=== PATIENT | male | born 1955 | race Caucasian/White ===

== ENCOUNTER 2021-10-14 08:10 | Inpatient (IN) | payer OTHER ==
[2021-10-14 09:31] VITALS: BMI 25.4
[2021-10-14] MEDS ORDERED: SODIUM CHLORIDE 0.9% 500 ML INFUS.BAG IV ONE (10:05)
[2021-10-14] MEDS ORDERED: ACETAMINOPHEN 1000 MG/100 ML BAG IVPB ONE (10:05)
[2021-10-14] MEDS ORDERED: ACETAMINOPHEN INJECTION 100 ML IVPB ONE (10:33)
[2021-10-14] MEDS ORDERED: FAMOTIDINE 20 MG/50 ML IVPB 20 MG/50 ML MG IVPB ONE ×2 (10:43→11:22)
[2021-10-14] MEDS ORDERED: MAG HYDROX/AL HYDROX/SIMETH 30 ML UNIT-DOSE CUP PO ONE (10:43)
[2021-10-14 10:55] LABS: HEMATOCRIT 33.8 % (35.4-49); HEMOGLOBIN 11.4 GM/dL (11.7-16.9); MCH 29.3 pg (25.7-33.7); MCHC 33.6 g/dl (32.0-35.9); MEAN CELL VOLUME 87.2 fl (80-96); PLATELET COUNT 146 10^3/uL (134-434); RBC 3.88 M/mm3 (4.00-5.60); WHITE BLOOD COUNT 14.6 K/mm3 (4.0-10.0)
[2021-10-14 11:02] LABS: EPI CELLS 9 /uL (0-25.1); HYALINE CASTS 12 /uL (0-3.1); URINE APPEARANCE CLOUDY; URINE BACTERIA 2 /uL (0-1359); URINE BILIRUBIN 1+ (NEGATIVE); URINE COLOR DK YELLOW; URINE GLUCOSE (UA) NEGATIVE (NEGATIVE); URINE KETONE TRACE (NEGATIVE); URINE LEUK ESTERASE TRACE (NEGATIVE); URINE NITRITE NEGATIVE (NEGATIVE); URINE PROTEIN 1+ (NEGATIVE); URINE RBC 12 /uL (0-23.9); URINE WBC 6 /uL (0-25.8)
[2021-10-14 11:03] LABS: INR 1.43 (0.83-1.09); PROTHROMBIN TIME (PATIENT) 16.8 SEC (9.7-13.0)
[2021-10-14 11:06] LABS: ACTIVATED PTT 41.5 SECONDS (25.2-36.5)
[2021-10-14 11:16] LABS: CHLORIDE 103 mmol/L (98-107); SODIUM 136 mmol/L (136-145)
[2021-10-14 11:18] LABS: CALCIUM 9.3 mg/dL (8.5-10.1)
[2021-10-14 11:19] LABS: ALBUMIN 3.7 g/dl (3.4-5.0); ANION GAP 7 MMOL/L (8-16); BLOOD UREA NITROGEN 50.3 mg/dL (7-18); CO2 27 mmol/L (21-32); GLUCOSE,RANDOM 86 mg/dL (74-106); LIPASE 433 U/L (73-393); MAGNESIUM 2.7 mg/dL (1.8-2.4)
[2021-10-14 11:22] LABS: SGOT/AST 31 U/L (15-37); SGPT/ALT 27 U/L (13-61)
[2021-10-14] MEDS ORDERED: MAG HYDROX/AL HYDROX/SIMETH 30 ML UNIT-DOSE CUP ONE (11:22)
[2021-10-14 11:23] LABS: CREATININE 1.9 mg/dL (0.55-1.3); TOT PROT 7.9 g/dl (6.4-8.2)
[2021-10-14 11:24] LABS: BILIRUBIN,TOTAL 1.4 mg/dL (0.2-1)
[2021-10-14 11:26] LABS: ALK PHOS 52 U/L (45-117)
[2021-10-14 11:27] LABS: ANISOCYTOSIS 1+; MACROCYTOSIS 0; PLATELET ESTIMATE DECREASED
[2021-10-14 11:55] LABS: URINE CRYSTALS NONE SEEN /hpf
[2021-10-14] MEDS ORDERED: DEXTROSE 5%-0.45% SALINE 1,000 ML IV SCH (16:15)
[2021-10-14] MEDS ORDERED: PHYTONADIONE 10 MG/1 ML AMP IVPB ONE (16:47)
[2021-10-14] MEDS ORDERED: PHYTONADIONE 10 MG/1 ML AMP ONE (17:44)
[2021-10-14] MEDS ORDERED: PIPERACILLIN/TAZOB 3.375 GM 3.375 GM/50 ML BAG IVPB ONE (17:45)
[2021-10-14] MEDS ORDERED: PIPERACILLIN/TAZOB 3.375 GM 3.375 GM in DEXTROSE 5%-WATER - 50 ML IVPB SCH (18:00)
[2021-10-14] MEDS: DEXTROSE 5%-0.45% SALINE 1,000 ML IV SCH (18:05)
[2021-10-14] MEDS: PIPERACILLIN/TAZOB 3.375 GM 3.375 GM in DEXTROSE 5%-WATER - 50 ML IVPB SCH (18:05)
[2021-10-15] MEDS ORDERED: DEXTROSE 5%-WATER - 50 ML IVPB ONE ×3 (02:20→17:26)
[2021-10-15] MEDS ORDERED: PIPERACILLIN/TAZOBACTAM 3.375 GM VIAL IVPB ONE ×2 (02:20→09:19)
[2021-10-15] MEDS: DEXTROSE 5%-0.45% SALINE 1,000 ML IV SCH ×2 (02:23→18:11)
[2021-10-15] MEDS: PIPERACILLIN/TAZOB 3.375 GM 3.375 GM in DEXTROSE 5%-WATER - 50 ML IVPB SCH ×2 (02:25→09:26)
[2021-10-15] MEDS ORDERED: PT OWN MED DRAWER 7, Y5N ONE ×2 (06:50→09:19)
[2021-10-15 08:55] LABS: INR 1.47 (0.83-1.09); PROTHROMBIN TIME (PATIENT) 16.5 SEC (9.7-13.0)
[2021-10-15 08:56] LABS: BASO % 0.2 % (0-2.0); EOS % 0.6 % (0-4.5); HEMATOCRIT 28.9 % (35.4-49); HEMOGLOBIN 9.8 GM/dL (11.7-16.9); LYMPH % 8.3 % (8-40); MCH 29.5 pg (25.7-33.7); MCHC 33.7 g/dl (32.0-35.9); MEAN CELL VOLUME 87.4 fl (80-96); MEAN PLT VOLUME 8.6 fl (7.5-11.1); MONO % 22.7 % (3.8-10.2); NEUT % 68.2 % (42.8-82.8); PLATELET COUNT 116 10^3/uL (134-434); RBC 3.31 M/mm3 (4.00-5.60); RDW 18.6 % (11.9-15.9); WHITE BLOOD COUNT 6.3 K/mm3 (4.0-10.0)
[2021-10-15 09:15] LABS: BLOOD UREA NITROGEN 30.8 mg/dL (7-18); CALCIUM 8.4 mg/dL (8.5-10.1)
[2021-10-15 09:18] LABS: BILIRUBIN,DIRECT 0.3 mg/dL (0.0-0.2); CREATININE 1.5 mg/dL (0.55-1.3)
[2021-10-15 09:20] LABS: BILIRUBIN,TOTAL 0.9 mg/dL (0.2-1); TOT PROT 6.5 g/dl (6.4-8.2)
[2021-10-15 09:22] LABS: ALBUMIN 2.9 g/dl (3.4-5.0)
[2021-10-15 10:04] LABS: ANISOCYTOSIS 2+; MACROCYTOSIS 0; OVALOCYTE 1+; PLATELET ESTIMATE DECREASED; TEAR DROP CELLS 1+
[2021-10-15] MEDS ORDERED: PIPERACILLIN/TAZOB 2.25 GM 2.25 GM in DEXTROSE 5%-WATER - 50 ML IVPB SCH ×2 (10:45→18:00)
[2021-10-15] MEDS ORDERED: MIDAZOLAM HCL 2 MG/2 ML SINGLE DOSE VIAL ONE (11:43)
[2021-10-15] MEDS ORDERED: fentaNYL CITRATE 250 MCG/5 ML VIAL ONE (11:43)
[2021-10-15] MEDS ORDERED: ROCURONIUM BROMIDE 50 MG/5 ML SYRINGE ONE ×3 (11:43→15:02)
[2021-10-15] MEDS ORDERED: PROMETHAZINE HCL 25 MG/1 ML VIAL IVPUSH PRN ×3 (12:40→16:04)
[2021-10-15] MEDS ORDERED: oxyCODONE HCL 5 MG TABLET PO PRN ×3 (12:40→16:04)
[2021-10-15] MEDS ORDERED: ONDANSETRON 4 MG/2 ML VIAL IVPUSH PRN ×3 (12:40→16:04)
[2021-10-15] MEDS ORDERED: BUPIVACAINE HCL/PF 0.5% (5MG/ML) 10 ML VIAL IJ ONE ×4 (12:47→14:35)
[2021-10-15] MEDS ORDERED: ACETAMINOPHEN INJECTION 100 ML IVPB ONE (13:14)
[2021-10-15] MEDS ORDERED: PIPERACILLIN/TAZOBACTAM 2.25 GM VIAL IVPB ONE (17:26)
[2021-10-15] MEDS: PIPERACILLIN/TAZOB 2.25 GM 2.25 GM in DEXTROSE 5%-WATER - 50 ML IVPB SCH (18:12)
[2021-10-15] MEDS: oxyCODONE HCL 5 MG TABLET PO PRN (19:00)
[2021-10-15] MEDS: ACETAMINOPHEN 1000 MG/100 ML BAG IVPB SCH (20:55)
[2021-10-16] MEDS ORDERED: DEXTROSE 5%-WATER - 50 ML IVPB ONE ×3 (01:37→17:17)
[2021-10-16] MEDS ORDERED: PIPERACILLIN/TAZOBACTAM 2.25 GM VIAL IVPB ONE ×3 (01:37→17:16)
[2021-10-16] MEDS: ACETAMINOPHEN 1000 MG/100 ML BAG IVPB SCH ×2 (01:41→08:14)
[2021-10-16] MEDS: PIPERACILLIN/TAZOB 2.25 GM 2.25 GM in DEXTROSE 5%-WATER - 50 ML IVPB SCH ×3 (02:01→17:23)
[2021-10-16 13:30] LABS: HEMATOCRIT 26.5 % (35.4-49); HEMOGLOBIN 8.8 GM/dL (11.7-16.9); MCH 28.8 pg (25.7-33.7); MCHC 33.2 g/dl (32.0-35.9); MEAN CELL VOLUME 86.8 fl (80-96); MEAN PLT VOLUME 8.6 fl (7.5-11.1); PLATELET COUNT 170 10^3/uL (134-434); RBC 3.05 M/mm3 (4.00-5.60); RDW 18.8 % (11.9-15.9); WHITE BLOOD COUNT 13.1 K/mm3 (4.0-10.0)
[2021-10-16 13:45] LABS: CALCIUM 7.7 mg/dL (8.5-10.1)
[2021-10-16 13:46] LABS: ALBUMIN 2.4 g/dl (3.4-5.0); BLOOD UREA NITROGEN 15.6 mg/dL (7-18)
[2021-10-16 13:49] LABS: CREATININE 1.4 mg/dL (0.55-1.3)
[2021-10-16 13:51] LABS: TOT PROT 5.6 g/dl (6.4-8.2)
[2021-10-16] MEDS: oxyCODONE HCL 5 MG TABLET PO PRN ×2 (14:24→20:57)
[2021-10-16 15:44] LABS: ANISOCYTOSIS 0; MACROCYTOSIS 0; PLATELET ESTIMATE NORMAL
[2021-10-16] MEDS: DEXTROSE 5%-0.45% SALINE 1,000 ML IV SCH ×2 (15:49→21:00)
[2021-10-17] MEDS ORDERED: PIPERACILLIN/TAZOBACTAM 2.25 GM VIAL IVPB ONE ×3 (01:44→17:46)
[2021-10-17] MEDS ORDERED: DEXTROSE 5%-WATER - 50 ML IVPB ONE ×3 (01:45→17:46)
[2021-10-17] MEDS: PIPERACILLIN/TAZOB 2.25 GM 2.25 GM in DEXTROSE 5%-WATER - 50 ML IVPB SCH ×3 (01:48→17:55)
[2021-10-17] MEDS: oxyCODONE HCL 5 MG TABLET PO PRN ×2 (08:14→15:14)
[2021-10-17 12:52] LABS: HEMATOCRIT 29.1 % (35.4-49); HEMOGLOBIN 9.6 GM/dL (11.7-16.9); MCH 28.9 pg (25.7-33.7); MCHC 32.9 g/dl (32.0-35.9); MEAN CELL VOLUME 87.9 fl (80-96); PLATELET COUNT 216 10^3/uL (134-434); RBC 3.31 M/mm3 (4.00-5.60); RDW 18.8 % (11.9-15.9)
[2021-10-17 13:32] LABS: ANISOCYTOSIS 1+; MACROCYTOSIS 0; PLATELET ESTIMATE NORMAL
[2021-10-17 13:40] LABS: BLOOD UREA NITROGEN 8.6 mg/dL (7-18)
[2021-10-17 13:44] LABS: CREATININE 1.2 mg/dL (0.55-1.3)
[2021-10-17] MEDS: DEXTROSE 5%-0.45% SALINE 1,000 ML IV SCH (15:02)
[2021-10-18] MEDS ORDERED: PIPERACILLIN/TAZOBACTAM 2.25 GM VIAL IVPB ONE ×3 (00:32→16:43)
[2021-10-18] MEDS ORDERED: DEXTROSE 5%-WATER - 50 ML IVPB ONE ×3 (00:33→16:43)
[2021-10-18] MEDS: PIPERACILLIN/TAZOB 2.25 GM 2.25 GM in DEXTROSE 5%-WATER - 50 ML IVPB SCH ×3 (01:03→17:17)
[2021-10-18] MEDS: DEXTROSE 5%-0.45% SALINE 1,000 ML IV SCH ×2 (01:03→17:16)
[2021-10-18] MEDS: oxyCODONE HCL 5 MG TABLET PO PRN ×2 (05:50→13:29)
[2021-10-18 09:21] LABS: HEMATOCRIT 29.5 % (35.4-49); HEMOGLOBIN 9.6 GM/dL (11.7-16.9); MCH 28.8 pg (25.7-33.7); MCHC 32.7 g/dl (32.0-35.9); MEAN CELL VOLUME 88.2 fl (80-96); MEAN PLT VOLUME 8.7 fl (7.5-11.1); PLATELET COUNT 235 10^3/uL (134-434); RBC 3.34 M/mm3 (4.00-5.60); RDW 18.5 % (11.9-15.9); WHITE BLOOD COUNT 11.4 K/mm3 (4.0-10.0)
[2021-10-18 09:54] LABS: CREATININE 1.1 mg/dL (0.55-1.3)
[2021-10-18 11:50] LABS: ANISOCYTOSIS 2+; MACROCYTOSIS 0; OVALOCYTE 1+; PLATELET ESTIMATE NORMAL
[2021-10-19] MEDS ORDERED: PIPERACILLIN/TAZOBACTAM 2.25 GM VIAL IVPB ONE ×3 (01:04→17:20)
[2021-10-19] MEDS ORDERED: DEXTROSE 5%-WATER - 50 ML IVPB ONE ×3 (01:05→17:20)
[2021-10-19] MEDS: PIPERACILLIN/TAZOB 2.25 GM 2.25 GM in DEXTROSE 5%-WATER - 50 ML IVPB SCH ×3 (01:21→17:23)
[2021-10-19 18:07] LABS: GLIADIN ANTIBODY IGA 4 units (0-19); GLIADIN ANTIBODY IGG 6 units (0-19); TRANSGLUTAMINASE IGG 2 U/mL (0-5)
[2021-10-20] MEDS ORDERED: DEXTROSE 5%-WATER - 50 ML IVPB ONE ×2 (00:08→09:57)
[2021-10-20] MEDS ORDERED: PIPERACILLIN/TAZOBACTAM 2.25 GM VIAL IVPB ONE ×2 (00:08→09:56)
[2021-10-20] MEDS: PIPERACILLIN/TAZOB 2.25 GM 2.25 GM in DEXTROSE 5%-WATER - 50 ML IVPB SCH ×2 (01:21→10:10)
[2021-10-20] MEDS ORDERED: PT OWN MED DRAWER 7, Y5N ONE (09:25)
[2021-10-21 16:04] VITALS: BP 128/66; PULSE 98; TEMP 98.6
== END 2021-10-21 16:07 | disposition home or self-care (01) | DRG 418 ==
LOC: JER 08:10 → JERBED 16:28 → J6S 21:09
PROVIDERS: ADMIT Internal Medicine; ATTEND Family Medicine
PROC: 0FT44ZZ Resection of Gallbladder, Percutaneous Endoscopic Approach (ICD-10-PCS; principal; 2021-10-15 11:00)
DX: K80.00 Calculus of gallbladder with acute cholecystitis without obstruction (principal); K62.5 Hemorrhage of anus and rectum; N17.9 Acute kidney failure, unspecified; K82.A1 Gangrene of gallbladder in cholecystitis; R11.2 Nausea with vomiting, unspecified; D72.829 Elevated white blood cell count, unspecified; E80.6 Other disorders of bilirubin metabolism; D64.9 Anemia, unspecified; R63.0 Anorexia; Z68.25 Body mass index [BMI] 25.0-25.9, adult; Z80.0 Family history of malignant neoplasm of digestive organs
CPT/HCPCS: 36415; 71045-TC-FY; 71046-TC-FY; 74176-TC; 74181-TC; 76705-TC; 80048; 80053; 80076; 81003; 82150; 82550; 82607; 82728; 82746; 82784; 82962; 83516; 83540; 83550; 83690; 83735; 84484; 85025; 85045; 85610; 85730; 86140; 87040; 87086; 88304-TC; 93005; 93010; 94760; 99285-25; C9803; J0131; U0003; U0005

== ENCOUNTER 2022-05-05 04:16 | Day surgery (SDC) | payer OTHER ==
[2022-05-03 10:53] VITALS: BMI 24.2
[2022-05-05 10:18] VITALS: TEMP 97.3
[2022-05-05 11:07] VITALS: BP 150/30; PULSE 73
== END 2022-05-05 11:07 | disposition home or self-care (01) ==
LOC: JASU-ENDO 04:16
PROVIDERS: ATTEND Internal Medicine Gastroenterology
PROC: 0DB98ZX Excision of Duodenum, Via Natural or Artificial Opening Endoscopic, Diagnostic (ICD-10-PCS; 2022-05-05)
PROC: 0DB78ZX Excision of Stomach, Pylorus, Via Natural or Artificial Opening Endoscopic, Diagnostic (ICD-10-PCS; 2022-05-05)
PROC: 0DB68ZX Excision of Stomach, Via Natural or Artificial Opening Endoscopic, Diagnostic (ICD-10-PCS; 2022-05-05)
PROC: 0DB48ZX Excision of Esophagogastric Junction, Via Natural or Artificial Opening Endoscopic, Diagnostic (ICD-10-PCS; 2022-05-05)
PROC: 0DJD8ZZ Inspection of Lower Intestinal Tract, Via Natural or Artificial Opening Endoscopic (ICD-10-PCS; principal; 2022-05-05 09:00)
DX: Z12.11 Encounter for screening for malignant neoplasm of colon (principal); K64.8 Other hemorrhoids; K63.89 Other specified diseases of intestine; Z80.0 Family history of malignant neoplasm of digestive organs; K21.9 Gastro-esophageal reflux disease without esophagitis; K29.00 Acute gastritis without bleeding
CPT/HCPCS: 43239; G0105; 88305-TC; 88342-TC

== ENCOUNTER 2025-06-17 10:39 | Inpatient (IN) | payer OTHER ==
[2025-06-17] MEDS ORDERED: CEFEPIME HCL/D5W 1 GM/50 ML BAG IVPB ONE (11:17)
[2025-06-17] MEDS ORDERED: AZITHROMYCIN IVPB 500 MG/250 ML BAG IVPB ONE (11:18)
[2025-06-17] MEDS ORDERED: VANCOMYCIN 1 GM PREMIX (F) 1 GM/200 ML BAG ONE (11:18)
[2025-06-17] MEDS: CEFEPIME HCL 1 GM VIAL (RESTRICTED TO ID) IVPB ONE (11:45)
[2025-06-17] MEDS: LACTATED RINGERS SOLUTION 1000 ML INFUS.BAG IV ONE ×2 (11:50→14:47)
[2025-06-17] MEDS ORDERED: ACETAMINOPHEN INJECTION 100 ML ONE (11:52)
[2025-06-17] MEDS: VANCOMYCIN 1,000 MG in DEXTROSE 5%-WATER - 250 ML IVPB ONE (11:55)
[2025-06-17] MEDS: ACETAMINOPHEN 1000 MG/100 ML BAG IVPB ONE (12:01)
[2025-06-17 12:17] LABS: MCHC 28.5 g/dl (32.3-36.5)
[2025-06-17 12:19] LABS: IMMATURE PLATELET FRACTION # 13.80 x10^3/uL; MEAN CELL VOLUME 76.7 fl (79.0-92.2); RDW 22.1 % (12.2-16.6)
[2025-06-17 12:23] LABS: INR 1.59 (0.83-1.09); PROTHROMBIN TIME (PATIENT) 17.3 SEC (9.7-13.0)
[2025-06-17 12:26] LABS: ACTIVATED PTT 46.9 SECONDS (25.2-36.5)
[2025-06-17] MEDS: ALBUTEROL SO4 2.5/IPRATROPIUM 0.5 INH SOL 3 ML VIAL.NEB. NEB SCH (12:30)
[2025-06-17 12:32] LABS: BG HCT 40.0 % (35.4-49); VENOUS BASE EXCESS 1.7 mmol/L (-2-2); VENOUS O2 SATURATION 53.3 % (70-80); VENOUS PCO2 52.1 mmHg (38-52); VENOUS PH 7.352 (7.310-7.410)
[2025-06-17 12:47] LABS: EPI CELLS >36 /uL (0-25.1); HYALINE CASTS 3 /uL (0-3.1); URINE APPEARANCE TURBID; URINE BACTERIA 16 /uL (0-1359); URINE BILIRUBIN NEGATIVE (NEGATIVE); URINE COLOR YELLOW; URINE GLUCOSE (UA) NEGATIVE (NEGATIVE); URINE KETONE NEGATIVE (NEGATIVE); URINE LEUK ESTERASE TRACE (NEGATIVE); URINE NITRITE NEGATIVE (NEGATIVE); URINE PROTEIN 2+ (NEGATIVE); URINE RBC 1903 /uL (0-23.9); URINE UROBILINOGEN 1.0 mg/dL (0.2-1.0); URINE WBC 44 /uL (0-25.8)
[2025-06-17 12:58] LABS: GLUCOSE,RANDOM 86.0 mg/dL (74-106); TOT PROT 7.1 g/dl (6.4-8.2)
[2025-06-17 13:00] LABS: CO2 23.0 mmol/L (21-32)
[2025-06-17 13:00] LABS: LACTIC ACID 2.3 mmol/L (0.4-2.0)
[2025-06-17 13:01] LABS: ALK PHOS 54.0 U/L (40-150)
[2025-06-17 13:04] LABS: CREATININE 1.23 mg/dL (0.55-1.3); SGOT/AST 31.0 U/L (5-34); SGPT/ALT 8.0 U/L (0-55)
[2025-06-17 13:30] LABS: HCV DIAGNOSTIC IN-HOUSE W/RFLX NON-REACTIVE (NONREACTIVE)
[2025-06-17 13:35] LABS: HIV INTERPRETATION NEGATIVE (NEGATIVE)
[2025-06-17] MEDS ORDERED: ALBUTEROL SO4 2.5/IPRATROPIUM 0.5 INH SOL 3 ML VIAL.NEB. NEB ONE (13:39)
[2025-06-17] MEDS ORDERED: methylPREDNISolone NA SUCC 125 MG/2 ML VIAL ONE (14:29)
[2025-06-17] MEDS: methylPREDNISolone NA SUCC 125 MG/2 ML VIAL IVPB ONE (14:31)
[2025-06-17] MEDS: AZITHROMYCIN IVPB 500 MG in DEXTROSE 5%-WATER - 250 ML IVPB ONE (14:47)
[2025-06-17] MEDS: LACTATED RINGERS SOLUTION 1,000 ML/1,000 ML INFUS.BAG IV SCH ×2 (14:58→16:16)
[2025-06-17 15:36] LABS: LACTIC ACID 3.2 mmol/L (0.4-2.0)
[2025-06-17] MEDS: CEFEPIME 2 GM in DEXTROSE 5%-WATER 100 ML IVPB SCH (22:27)
[2025-06-17] MEDS: HEPARIN NA (PORCINE) 5,000 UNITS/ML 1ML VIAL SQ SCH (22:30)
[2025-06-18] MEDS: VANCOMYCIN/WATER FOR INJ (PEG) 750 MG/150 ML BAG IVPB SCH ×2 (00:17→23:24)
[2025-06-18 08:40] LABS: RDW 21.2 % (12.2-16.6)
[2025-06-18 08:42] LABS: IMMATURE PLATELET FRACTION # 12.10 x10^3/uL; MCHC 28.3 g/dl (32.3-36.5); MEAN CELL VOLUME 76.7 fl (79.0-92.2)
[2025-06-18 09:33] LABS: GLUCOSE,RANDOM 107.0 mg/dL (74-106)
[2025-06-18 09:35] LABS: CO2 25.0 mmol/L (21-32)
[2025-06-18 09:39] LABS: CREATININE 1.03 mg/dL (0.55-1.3)
[2025-06-18] MEDS: LACTATED RINGERS SOLUTION 1,000 ML/1,000 ML INFUS.BAG IV STA (10:12)
[2025-06-18] MEDS: FAMOTIDINE 20 MG TABLET PO SCH (10:22)
[2025-06-18] MEDS: ASPIRIN COATED 81 MG TABLET.EC PO SCH (10:22)
[2025-06-18] MEDS: TAMSULOSIN HCL 0.4 MG CAP PO SCH (10:23)
[2025-06-18] MEDS: FEBUXOSTAT 40 MG TAB PO SCH (10:24)
[2025-06-18] MEDS: AZITHROMYCIN IVPB 500 MG/250 ML BAG IVPB SCH (11:25)
[2025-06-18] MEDS: LACTATED RINGERS SOLUTION 1,000 ML/1,000 ML INFUS.BAG IV SCH ×2 (14:35→17:00)
[2025-06-18] MEDS ORDERED: LACTATED RINGERS SOLUTION 1,000 ML/1,000 ML INFUS.BAG IV SCH (17:11)
[2025-06-18] MEDS: CEFEPIME HCL 1 GM VIAL (RESTRICTED TO ID) IVPB SCH ×2 (17:48→17:49)
[2025-06-18] MEDS: VANCOMYCIN 750 MG in DEXTROSE 5%-WATER - 150 ML IVPB SCH ×2 (17:48→17:49)
[2025-06-18] MEDS ORDERED: PIPERACILLIN/TAZOB 4.5 GM 4.5 GM in DEXTROSE 5%-WATER 100 ML IVPB SCH (18:00)
[2025-06-18] MEDS: CEFEPIME 2 GM in DEXTROSE 5%-WATER 100 ML IVPB SCH (21:39)
[2025-06-18] MEDS: HEPARIN NA (PORCINE) 5,000 UNITS/ML 1ML VIAL SQ SCH (21:39)
[2025-06-19 07:18] LABS: BASOPHILS # 0.06 x10^3/uL (0.01-0.08)
[2025-06-19 07:20] LABS: ABSOLUTE IMMATURE GRANULOCYTES 0.79 x10^3/uL (0.0-0.031); EOSINOPHIL % 0.1 % (0.8-7.0); EOSINOPHILS # 0.01 x10^3/uL (0.04-0.54); IMMATURE PLATELET FRACTION # 15.20 x10^3/uL; MCHC 29.0 g/dl (32.3-36.5); MEAN CELL VOLUME 76.7 fl (79.0-92.2); MONOCYTE # 2.56 x10^3/uL (0.30-0.82); MONOCYTE % 13.3 % (5.3-12.2); RDW 21.3 % (12.2-16.6)
[2025-06-19 07:41] LABS: GLUCOSE,RANDOM 78.0 mg/dL (74-106)
[2025-06-19 07:43] LABS: CO2 22.0 mmol/L (21-32)
[2025-06-19 07:47] LABS: CREATININE 1.0 mg/dL (0.55-1.3)
[2025-06-19] MEDS: TAMSULOSIN HCL 0.4 MG CAP PO SCH (08:57)
[2025-06-19] MEDS: ASPIRIN COATED 81 MG TABLET.EC PO SCH (09:03)
[2025-06-19] MEDS: FAMOTIDINE 20 MG TABLET PO SCH (09:03)
[2025-06-19] MEDS ORDERED: FEBUXOSTAT 40 MG TAB PO SCH (10:00)
[2025-06-19] MEDS: FEBUXOSTAT 40 MG TAB PO SCH (11:08)
[2025-06-19] MEDS: SODIUM CHLORIDE 1,000 ML IV SCH (11:08)
[2025-06-19] MEDS: VANCOMYCIN 750 MG in DEXTROSE 5%-WATER - 150 ML IVPB SCH (13:55)
[2025-06-19] MEDS: CEFEPIME 2 GM in DEXTROSE 5%-WATER 100 ML IVPB SCH (17:46)
[2025-06-19] MEDS ORDERED: CEFEPIME HCL 2 GM VIAL (RESTRICTED TO ID) IVPB SCH (18:00)
[2025-06-20 07:05] LABS: EOSINOPHIL % 0.0 % (0.8-7.0); EOSINOPHILS # 0.00 x10^3/uL (0.04-0.54)
[2025-06-20 07:07] LABS: ABSOLUTE IMMATURE GRANULOCYTES 0.93 x10^3/uL (0.0-0.031); BASOPHILS # 0.05 x10^3/uL (0.01-0.08); IMMATURE PLATELET FRACTION # 15.90 x10^3/uL; MCHC 28.7 g/dl (32.3-36.5); MEAN CELL VOLUME 77.2 fl (79.0-92.2); MONOCYTE # 2.51 x10^3/uL (0.30-0.82); MONOCYTE % 15.3 % (5.3-12.2); RDW 21.2 % (12.2-16.6)
[2025-06-20 07:19] LABS: GLUCOSE,RANDOM 74.0 mg/dL (74-106)
[2025-06-20 07:20] LABS: TOT PROT 5.2 g/dl (6.4-8.2)
[2025-06-20 07:21] LABS: CO2 24.0 mmol/L (21-32)
[2025-06-20 07:22] LABS: ALK PHOS 34.0 U/L (40-150)
[2025-06-20 07:25] LABS: CREATININE 1.06 mg/dL (0.55-1.3); SGOT/AST 17.0 U/L (5-34); SGPT/ALT 6.0 U/L (0-55)
[2025-06-20] MEDS: MAGNESIUM SULF 50% (8.12 MEQ/2 ML-1 GM VIAL) IVPB ONE (11:03)
[2025-06-20] MEDS: POTASSIUM PHOSPHATE 30 MM in SODIUM CHLORIDE 500 ML IVPB ONE (17:17)
[2025-06-20] MEDS: SODIUM CHLORIDE 1,000 ML IV SCH (17:18)
[2025-06-20] MEDS: CEFEPIME HCL 1 GM VIAL (RESTRICTED TO ID) IVPB SCH (19:00)
[2025-06-21] MEDS: CEFEPIME 2 GM in DEXTROSE 5%-WATER 100 ML IVPB SCH (01:12)
[2025-06-21] MEDS ORDERED: CEFEPIME 2 GM in DEXTROSE 5%-WATER 100 ML IVPB SCH (02:00)
[2025-06-21 08:03] LABS: MCHC 28.3 g/dl (32.3-36.5); RDW 21.5 % (12.2-16.6)
[2025-06-21 08:05] LABS: IMMATURE PLATELET FRACTION # 15.80 x10^3/uL; MEAN CELL VOLUME 77.2 fl (79.0-92.2)
[2025-06-21 09:02] LABS: GLUCOSE,RANDOM 64.0 mg/dL (74-106)
[2025-06-21 09:04] LABS: CO2 21.0 mmol/L (21-32)
[2025-06-21 09:08] LABS: CREATININE 1.13 mg/dL (0.55-1.3)
[2025-06-21] MEDS: TAMSULOSIN HCL 0.4 MG CAP PO SCH (09:57)
[2025-06-21] MEDS: FEBUXOSTAT 40 MG TAB PO SCH (10:04)
[2025-06-21] MEDS: SODIUM CHLORIDE 1,000 ML with POTASSIUM CHLORIDE 40 MEQ IV SCH (10:05)
[2025-06-21] MEDS: FAMOTIDINE 20 MG TABLET PO SCH (10:05)
[2025-06-21] MEDS: ASPIRIN COATED 81 MG TABLET.EC PO SCH (10:05)
[2025-06-21] MEDS: HEPARIN NA (PORCINE) 5,000 UNITS/ML 1ML VIAL SQ SCH (10:05)
[2025-06-21] MEDS: POTASSIUM CHLORIDE ORAL LIQUID 20 MEQ/15 ML PO ONE (10:49)
[2025-06-22 08:00] LABS: RDW 21.5 % (12.2-16.6)
[2025-06-22 08:02] LABS: IMMATURE PLATELET FRACTION # 15.20 x10^3/uL; MCHC 28.4 g/dl (32.3-36.5); MEAN CELL VOLUME 77.6 fl (79.0-92.2)
[2025-06-22 08:21] LABS: GLUCOSE,RANDOM 81.0 mg/dL (74-106)
[2025-06-22 08:23] LABS: CO2 18.0 mmol/L (21-32)
[2025-06-22 08:27] LABS: CREATININE 1.3 mg/dL (0.55-1.3)
[2025-06-22] MEDS ORDERED: PIPERACILLIN/TAZOB 3.375 GM 3.375 GM in DEXTROSE 5%-WATER - 50 ML IVPB SCH (10:00)
[2025-06-22] MEDS: MEROPENEM 1 GM in DEXTROSE 5%-WATER 100 ML IVPB SCH ×2 (10:15→15:03)
[2025-06-22] MEDS: MAGNESIUM 2GM/50ML STERILE WATER IVPB IVPB ONE (10:15)
[2025-06-22] MEDS: SODIUM CHLORIDE IVPB SCH (10:30)
[2025-06-22] MEDS: POTASSIUM PHOSPHATE IVPB SCH (10:30)
[2025-06-22] MEDS: ASCORBIC ACID 500 MG TABLET (FP) PO SCH (13:59)
[2025-06-22] MEDS: THIAMINE HCL 200 MG/2 ML VIAL IVPB SCH (13:59)
[2025-06-22] MEDS: MULTIVIT-MINERALS ORAL LIQUID PO SCH (14:36)
[2025-06-22] MEDS: PIPERACILLIN/TAZOB 3.375 GM 3.375 GM in DEXTROSE 5%-WATER - 50 ML IVPB SCH (17:21)
[2025-06-23 08:21] LABS: RDW 21.9 % (12.2-16.6)
[2025-06-23 08:22] LABS: IMMATURE PLATELET FRACTION # 13.10 x10^3/uL; MCHC 28.2 g/dl (32.3-36.5); MEAN CELL VOLUME 77.1 fl (79.0-92.2)
[2025-06-23 08:47] LABS: GLUCOSE,RANDOM 72.0 mg/dL (74-106)
[2025-06-23 08:48] LABS: CO2 21.0 mmol/L (21-32)
[2025-06-23 08:53] LABS: CREATININE 1.61 mg/dL (0.55-1.3)
[2025-06-23] MEDS ORDERED: MAGNESIUM 1GM/D5W 100ML - 100 ML IVPB IVPB ONE (11:00)
[2025-06-23] MEDS: DOCUSATE SODIUM 100 MG CAPSULE (FP) PO ONE (15:35)
[2025-06-23] MEDS: SODIUM CHLORIDE 1,000 ML IV STA (15:36)
[2025-06-23] MEDS ORDERED: LACTATED RINGERS SOLUTION 1,000 ML/1,000 ML INFUS.BAG IV SCH (16:15)
[2025-06-23] MEDS: DEXTROSE 5%-LACTATED RINGERS 1,000 ML IV SCH (18:26)
[2025-06-24 08:11] LABS: IMMATURE PLATELET FRACTION # 14.20 x10^3/uL; MCHC 28.5 g/dl (32.3-36.5); MEAN CELL VOLUME 78.0 fl (79.0-92.2); RDW 21.7 % (12.2-16.6)
[2025-06-24 08:31] LABS: GLUCOSE,RANDOM 88.0 mg/dL (74-106)
[2025-06-24 08:33] LABS: CO2 20.0 mmol/L (21-32)
[2025-06-24 08:37] LABS: CREATININE 1.75 mg/dL (0.55-1.3)
[2025-06-24 13:24] VITALS: BMI 20.2
[2025-06-25 08:31] LABS: IMMATURE PLATELET FRACTION # 17.70 x10^3/uL; MCHC 28.0 g/dl (32.3-36.5); MEAN CELL VOLUME 78.4 fl (79.0-92.2); RDW 22.3 % (12.2-16.6)
[2025-06-25 08:57] LABS: GLUCOSE,RANDOM 72 mg/dL (74-106); TOT PROT 5.8 g/dl (6.4-8.2)
[2025-06-25 08:58] LABS: CO2 23 mmol/L (21-32)
[2025-06-25 09:00] LABS: ALK PHOS 38 U/L (40-150)
[2025-06-25 09:03] LABS: SGOT/AST 19 U/L (5-34)
[2025-06-25 09:05] LABS: CREATININE 2.31 mg/dL (0.55-1.3); SGPT/ALT < 6 U/L (0-55)
[2025-06-25] MEDS: DEXTROSE 5%-LACTATED RINGERS 1,000 ML IV SCH (10:23)
[2025-06-25] MEDS: KCL 10 MEQ IVPB 10 MEQ/100 ML INFUS.BAG IVPB SCH (10:58)
[2025-06-25] MEDS: POTASSIUM CHLORIDE ORAL LIQUID 20 MEQ/15 ML PO ONE (11:15)
[2025-06-25] MEDS: AMPICILLIN NA/SULBACTAM NA 3 GM in SODIUM CHLORIDE 100 ML IVPB SCH (22:09)
[2025-06-26 09:22] LABS: MCHC 27.8 g/dl (32.3-36.5)
[2025-06-26 09:24] LABS: IMMATURE PLATELET FRACTION # 16.00 x10^3/uL; MEAN CELL VOLUME 80.0 fl (79.0-92.2); RDW 22.6 % (12.2-16.6)
[2025-06-26 10:30] LABS: GLUCOSE,RANDOM 63 mg/dL (74-106); TOT PROT 5.8 g/dl (6.4-8.2)
[2025-06-26 10:31] LABS: CO2 19 mmol/L (21-32)
[2025-06-26 10:33] LABS: ALK PHOS 48 U/L (40-150)
[2025-06-26 10:35] LABS: SGOT/AST 23 U/L (5-34); SGPT/ALT < 6 U/L (0-55)
[2025-06-26 10:36] LABS: CREATININE 2.12 mg/dL (0.55-1.3)
[2025-06-26] MEDS: ASPIRIN 81 MG CHEWABLE TABLETS PO SCH (10:40)
[2025-06-26] MEDS: HEPARIN NA (PORCINE) 5,000 UNITS/ML 1ML VIAL SQ SCH (22:20)
[2025-06-27 07:56] LABS: IMMATURE PLATELET FRACTION # 14.50 x10^3/uL; MCHC 28.2 g/dl (32.3-36.5); MEAN CELL VOLUME 79.2 fl (79.0-92.2); RDW 22.5 % (12.2-16.6)
[2025-06-27 08:30] LABS: GLUCOSE,RANDOM 81 mg/dL (74-106); TOT PROT 5.7 g/dl (6.4-8.2)
[2025-06-27 08:31] LABS: CO2 20 mmol/L (21-32)
[2025-06-27 08:33] LABS: ALK PHOS 36 U/L (40-150)
[2025-06-27 08:35] LABS: SGOT/AST 19 U/L (5-34); SGPT/ALT < 6 U/L (0-55)
[2025-06-27 08:36] LABS: CREATININE 2.03 mg/dL (0.55-1.3)
[2025-06-27] MEDS: MAGNESIUM SULFATE IN WATER 2 GM/50 ML IVPB IVPB ONE (11:30)
[2025-06-27] MEDS: THIAMINE 100 MG TABLET PO SCH (11:52)
[2025-06-27] MEDS: KCL 10 MEQ IVPB 10 MEQ/100 ML INFUS.BAG IVPB SCH (12:32)
[2025-06-27] MEDS: PIPERACILLIN/TAZOB 2.25 GM 2.25 GM in DEXTROSE 5%-WATER - 50 ML IVPB SCH (15:28)
[2025-06-27] MEDS: LACTATED RINGERS SOLUTION 1,000 ML/1,000 ML INFUS.BAG IV SCH (18:44)
[2025-06-28 07:30] LABS: IMMATURE PLATELET FRACTION # 13.40 x10^3/uL; MCHC 27.9 g/dl (32.3-36.5); MEAN CELL VOLUME 80.3 fl (79.0-92.2); RDW 22.7 % (12.2-16.6)
[2025-06-28 08:03] LABS: GLUCOSE,RANDOM 63 mg/dL (74-106); TOT PROT 5.7 g/dl (6.4-8.2)
[2025-06-28 08:04] LABS: CO2 23 mmol/L (21-32)
[2025-06-28 08:06] LABS: ALK PHOS 39 U/L (40-150)
[2025-06-28 08:08] LABS: SGOT/AST 19 U/L (5-34)
[2025-06-28 08:10] LABS: SGPT/ALT < 6 U/L (0-55)
[2025-06-28 08:12] LABS: CREATININE 1.87 mg/dL (0.55-1.3)
[2025-06-28] MEDS: KCL 10 MEQ IVPB 10 MEQ/100 ML INFUS.BAG IVPB SCH (10:40)
[2025-06-28] MEDS: DEXTROSE 5%-LACTATED RINGERS 1,000 ML IV SCH (16:42)
[2025-06-29] MEDS ORDERED: POTASSIUM CHLORIDE TABS 20 MEQ TABLET.ER (FP) PO ONE (10:30)
[2025-06-29 11:03] LABS: MEAN CELL VOLUME 80.0 fl (79.0-92.2); RDW 23.2 % (12.2-16.6)
[2025-06-29 11:05] LABS: IMMATURE PLATELET FRACTION # 15.00 x10^3/uL; MCHC 28.4 g/dl (32.3-36.5)
[2025-06-29 12:04] LABS: GLUCOSE,RANDOM 96.0 mg/dL (74-106)
[2025-06-29 12:06] LABS: CO2 20.0 mmol/L (21-32)
[2025-06-29 12:10] LABS: CREATININE 1.77 mg/dL (0.55-1.3)
[2025-06-29 12:59] VITALS: BP 145/69; PULSE 90; RESP 18; TEMP 97.7
== END 2025-06-29 13:36 | DRG 871 ==
LOC: JER 10:39 → JERBED 11:05 → J6S 15:25 → J4W 06-18 17:04 → J5S 06-20 23:34
PROVIDERS: ADMIT Internal Medicine; ATTEND Student in an Organized Health Care Education/Training Program
DX: A41.9 Sepsis, unspecified organism (principal); E43 Unspecified severe protein-calorie malnutrition; J69.0 Pneumonitis due to inhalation of food and vomit; E87.1 Hypo-osmolality and hyponatremia; E78.5 Hyperlipidemia, unspecified; I10 Essential (primary) hypertension; D50.9 Iron deficiency anemia, unspecified; R16.1 Splenomegaly, not elsewhere classified; M10.9 Gout, unspecified; E87.6 Hypokalemia; E83.39 Other disorders of phosphorus metabolism; R31.9 Hematuria, unspecified; Z68.20 Body mass index [BMI] 20.0-20.9, adult; E80.6 Other disorders of bilirubin metabolism; E83.42 Hypomagnesemia
CPT/HCPCS: 36415; 71045-TC-FY; 71250-TC; 76604; 76775-TC; 76856-TC; 80048; 80053; 81003; 82248; 82308; 82436; 82533; 82550; 82570; 82803; 82962; 83519; 83605; 83735; 83935; 84100; 84133; 84300; 84484; 85025; 85027; 85610; 85730; 86140; 86803; 86850; 86900; 86901; 87040; 87086; 87389; 87637-QW; 87899; 93005; 93010; 93308; 97116-GP; 97162-GP; 99285-25